=== PATIENT | male | born 1960 | race Caucasian/White ===

== ENCOUNTER 2022-12-08 00:38 | Day surgery (SDC) | payer BC, SELFPAY ==
[2022-11-22 13:37] VITALS: BMI 32.5
[2022-12-08 07:13] VITALS: BP 139/95; PULSE 54; RESP 18; TEMP 36.1; O2SAT 100; BMI 32.5
--- NOTE | 2022-12-08 07:22 | PM.HPGS ---
History of Present Illness History of Present Illness Consent: Risks, benefits, and alternatives have been discussed and questions answered. Patient agrees to proceed with procedure. Chief complaint: neoplasm screening Narrative: Ramirez Estes is a 62 year old male presents for screening colonoscopy. Patient's current weight appetite and bowel movements are normal. Patient denies abdominal pain. He has had no bleeding. Family history is noncontributory. Previous colonoscopy 10 years ago was unremarkable. Review of Systems Review of Systems: Review of systems noncontributory. [facility] Past Medical History Medical History Cardiomyopathy Social History Social History Smoking status: Never smoker Alcohol intake: current Drinks per week: 3 Alcohol use details: [employer] Substance use: never Substance use type: does not use Living arrangements: with family Spiritual care concerns: No Meds Home Medications and Allergies Home Medications Medication Instructions Recorded Confirmed Type aspirin 81 mg tablet,delayed 81 mg PO DAILY 07/02/20 11/22/22 History release atorvastatin 10 mg tablet See Rx Instructions PO DAILY 07/02/20 11/22/22 History metoprolol succinate 25 mg 25 mg PO DAILY 07/02/20 11/22/22 History tablet,extended release 24 hr sodium,potassium,mag sulfates 17.5 See Rx Instructions PO .COMPLEX 10/25/22 11/22/22 Rx gram-3.13 gram-1.6 gram oral soln #354 mL (Suprep Bowel Prep Kit) hydrochlorothiazide 25 mg tablet 12.5 mg PO DAILY 11/22/22 11/22/22 History valsartan 320 mg tablet 320 mg PO DAILY 11/22/22 11/22/22 History Allergies Allergy/AdvReac Type Severity Reaction Status Date / Time No Known Allergies Allergy Verified 11/22/22 13:35 Vital Signs Vital Signs - 24 hr 12/08/22 07:13 Temperature 96.9 F L Pulse Rate 54 L Respiratory Rate 18 Blood Pressure 139/95 H Pulse Oximetry 100 Oxygen Delivery Room Air Exam Narrative: Physical exam reveals patient to be alert. Vital signs stable. HEENT exam is unremarkable. Patient is anicteric. Lungs are clear to auscultation and percussion. Heart is without murmur or extra sounds. Abdomen bowel sounds are present soft nontender with no organomegaly. Digital external rectal exam is normal. Assessment and Plan Assessment and plan (1) Encounter for screening colonoscopy: Code(s): Z12.11 - Encounter for screening for malignant neoplasm of colon Status: Acute Assessment and Plan: Patient presents today for screening colonoscopy. He appears to be at average risk for colon polyps. Further recommendations may be given after endoscopy.
[2022-12-08] MEDS: LACTATED RINGERS 1,000 ML 150 ML IV CONT (07:26)
--- NOTE | 2022-12-08 08:10 | P.PNAN_ITS ---
Anes - Initial Pre Proc Eval Procedure: Operation Date: 12/08/22 08:30 Proposed Procedures p Screening Colonoscopy - Anatoliy Tapia MD Date/Time: 12/08/22 08:10 Surgeon: Anatoliy Tapia MD Pre Op Diagnosis: neoplasm screening Patient Data Age: 62 Gender: M Height: 1.75 m Weight: 99.9 kg Last Vital Signs Temp 96.9 F L 12/08/22 07:13 Pulse 54 L 12/08/22 07:13 Resp 18 12/08/22 07:13 BP 139/95 H 12/08/22 07:13 Pulse Ox 100 12/08/22 07:13 O2 Del Method Room Air 12/08/22 07:13 Allergies Allergy/AdvReac Type Severity Reaction Status Date / Time No Known Allergies Allergy Verified 11/22/22 13:35 Home Medications Medication Instructions Recorded Confirmed Type aspirin 81 mg tablet,delayed 81 mg PO DAILY 07/02/20 11/22/22 History release atorvastatin 10 mg tablet See Rx Instructions PO DAILY 07/02/20 11/22/22 History metoprolol succinate 25 mg 25 mg PO DAILY 07/02/20 11/22/22 History tablet,extended release 24 hr sodium,potassium,mag sulfates 17.5 See Rx Instructions PO .COMPLEX 10/25/22 11/22/22 Rx gram-3.13 gram-1.6 gram oral soln #354 mL (Suprep Bowel Prep Kit) hydrochlorothiazide 25 mg tablet 12.5 mg PO DAILY 11/22/22 11/22/22 History valsartan 320 mg tablet 320 mg PO DAILY 11/22/22 11/22/22 History Patient hx anesthesia problems: none Family hx anesthesia problems: none Results Review: All pre-operative results and documents have been reviewed as part of the pre- operative evaluation. [facility] Past Medical History Medical History Cardiomyopathy Social History Social History Smoking status: Never smoker Alcohol intake: current Drinks per week: 3 Alcohol use details: [employer] Substance use: never Substance use type: does not use Living arrangements: with family Spiritual care concerns: No Anes - Eval Final PreProcedure Day of Procedure 12/08/22 08:10 Patient weight: obese Heart: regular rate and rhythm Lungs: clear to auscultation Airway: Mallampati scale class II Neurological: alert and oriented Last oral intake: >/= 8 hours ASA classification: III Emergent: no Anesthetic plan: proceed Anesthesia type and monitoring: general GIVS and standard monitoring Results Review: All pre-operative results and documents have been reviewed as part of the pre- operative evaluation. Informed Consent: The patient's anesthetic plan and its attendant risks and benefits were discussed with the patient/family/POA. Questions were solicited and answers provided to the satisfaction of the patient/family/POA.
[2022-12-08 09:06] VITALS: BP 115/81; PULSE 66; RESP 26; O2SAT 100
[2022-12-08 09:16] VITALS: BP 120/85; PULSE 58; RESP 21; O2SAT 97
[2022-12-08 09:26] VITALS: BP 136/92; PULSE 50; RESP 35; O2SAT 96
== END 2022-12-08 09:35 | disposition home or self-care (01) ==
PROVIDERS: PCP Family Medicine; Visit Provider Internal Medicine Gastroenterology
PROC: 0DJD8ZZ Inspection of Lower Intestinal Tract, Via Natural or Artificial Opening Endoscopic (ICD-10-PCS; CPT 45378; principal; 2022-12-08 08:30)
DX: Z12.11 Encounter for screening for malignant neoplasm of colon (principal); K57.30 Diverticulosis of large intestine without perforation or abscess without bleeding; K64.8 Other hemorrhoids; I42.9 Cardiomyopathy, unspecified; Z79.82 Long term (current) use of aspirin; E66.9 Obesity, unspecified; Z68.32 Body mass index [BMI] 32.0-32.9, adult
CPT/HCPCS: 45378; J2704; J7120